=== PATIENT | female | born 1960 | race Hispanic/Latino ===

== ENCOUNTER 2020-08-04 08:35 | Observation (INO) | payer MEDICAID ==
[2020-07-30 11:00] LABS: BASOPHILS % (AUTO) 0.8 % (0.0-5.0); EOSINOPHILS % (AUTO) 1.4 % (0.0-8.0); HEMATOCRIT 40.8 % (36-48); LYMPHOCYTES % (AUTO) 20.7 % (21.0-51.0); MEAN CORPUSCULAR HEMOGLOBIN 29.3 pg (27.0-33.0); MEAN CORPUSCULAR HGB CONC 33.1 g/dL (32.0-36.0); MEAN CORPUSCULAR VOLUME 88.7 fL (79-99); NEUTROPHILS % (AUTO) 68.6 % (40.0-77.0); PLATELET COUNT (AUTO) 275 K/uL (130-400); RED CELL DISTRIBUTION WIDTH 13.5 % (11.0-15.5); WHITE BLOOD COUNT (AUTO) 6.3 K/uL (4.8-10.8)
[2020-07-30 11:15] LABS: ALBUMIN 4.2 g/dL (3.5-5.0); BILIRUBIN,TOTAL 0.5 mg/dL (0.2-1.0); CREATININE 0.5 mg/dL (0.5-1.5); POTASSIUM 3.6 mmol/L (3.5-5.1); TOTAL PROTEIN, SERUM 7.8 g/dL (6.0-8.3)
[2020-07-30 11:31] LABS: INR 0.95 (0.85-1.15); PARTIAL THROMBOPLASTIN TIME 25.2 SEC (26.3-35.5); PROTHROMBIN TIME 10.3 SEC (9.6-11.6)
[2020-08-03 10:53] VITALS: BP 146/56
--- NOTE | 2020-08-03 15:25 | NUR ---
NM INJECTION PROCEDURE PERFORMED BY DR. BECERRIL. PUNCTURE SITE LEFT 4 QUADRANTS OF BREAST AND PATIENT TOLERATED PROCEDURE WELL. END OF PROCEDURE AT 1530. AWAITING NM INJECTION FOR THE RIGHT BREAST. PATIENT RESTING IN BED, STABLE, NO C/O PAIN.
--- NOTE | 2020-08-03 17:11 | NUR ---
NM INJECTION PROCEDURE PERFORMED BY DR. BECERRIL. SECOND PUNCTURE SITE RIGHT 4 QUADRANTS OF BREAST AND PATIENT TOLERATED PROCEDURE WELL. END OF PROCEDURE AT 1655. AWAITING NM IMAGING. PATIENT RESTING IN BED, STABLE, NO C/O PAIN.
[2020-08-04] VITALS (33 sets, daily range): BP systolic 121–162; BP diastolic 69–93
[~2020-08-04] VITALS: Ht 152.4 cm; Wt 58.1 kg
[~2020-08-04 08:35] MED LIST: ATOR40TA71 PO; LIDOCAINE 1%-EPI 1:100,000 20 ML VIAL IJ ONE; LIDOCAINE HCL 1% 20 ML VIAL ONE; SODIUM BICARB 50MEQ 50ML VIAL 50 ML ONE
--- NOTE | 2020-08-04 09:10 | NUR ---
preop pt laying on stretcher in no distress. pt has rt upper chest wall portacath. pt oriented to room and call light. will continue to monitor pt.
[2020-08-04] MEDS ORDERED: CEFAZOLIN SODIUM 1 GM VIAL ONE (09:19)
[2020-08-04] MEDS ORDERED: LACTATED RINGERS 1000ML 1,000 ML IV ONE (09:19)
--- NOTE | 2020-08-04 10:00 | NUR ---
radiology pt taken to radiology via stretcher in no distress.
[2020-08-04] MEDS ORDERED: LIDOCAINE PF 2% 5ML ABBOJECT ONE ×2 (10:16→12:50)
[2020-08-04] MEDS ORDERED: ONDANSETRON HCL 4 MG/2 ML VIAL ONE (10:16)
[2020-08-04] MEDS ORDERED: PROPOFOL 10 MG/ML 20ML VIAL IV ONE (10:16)
[2020-08-04] MEDS ORDERED: SUCCINYLCHOLINE 200MG/10ML SYR ONE ×4 (10:16→15:09)
[2020-08-04] MEDS ORDERED: DEXAMETHASONE SOD PHOSPHATE 10MG/ML 1ML VIAL ONE ×2 (10:16→12:50)
[2020-08-04] MEDS ORDERED: MIDAZOLAM HCL 1 MG/ML 2ML VIAL ONE (10:16)
[2020-08-04] MEDS ORDERED: FENTANYL CITRATE PF 50 MCG/1 ML 2ML VIAL ONE ×2 (10:17→14:36)
[2020-08-04] MEDS ORDERED: LIDOCAINE HCL 1% 20 ML VIAL ONE (10:45)
[2020-08-04] MEDS ORDERED: BUPIVACAINE/PF 0.25% 30ML VIAL IJ ONE (10:45)
--- NOTE | 2020-08-04 11:15 | NUR ---
MAMMOGRAPHY GUIDED RIGHT AND LEFT BREAST NEEDLE LOCALIZATION PROCEDURE PERFORMED BY DR. ZIMMER. NEEDLE LOCALIZATION PUNCTURE SITE LATERAL RIGHT BREAST AND MEDIAL LEFT BREAST AND PATIENT TOLERATED PROCEDURE WELL. WIRE IN PLACE TO THE RIGHT LATERAL BREAST AND LEFT MEDIAL BREAST AND CONFIRMED WITH MAMMOGRAPHY PERFORMED BY [employer]. END OF PROCEDURE AT 1215. PT TOLERATED WELL. PATIENT TRANSPORTED TO DAY PATIENT VIA STRETCHER. REPORT GIVEN TO SERGIO LLANES. PT STABLE, AAO X 3 WITH NO C/O PAIN.
--- NOTE | 2020-08-04 12:45 | NUR ---
portcath portacath access with 22gauge 1 inch to right upper chest. pt tolerated well. sterile dressing applied
[2020-08-04] MEDS ORDERED: MEPERIDINE-PF 25 MG/ML SYG ONE ×3 (14:14→17:36)
[2020-08-04] MEDS ORDERED: OCTYL 2-CYANOACRYLATE 1 EACH TP ONE (14:58)
[2020-08-04] MEDS ORDERED: NEOSTIGMINE 5MG/5ML SYR IV ONE (16:39)
[2020-08-04] MEDS ORDERED: GLYCOPYRROLATE 1 MG/5 ML SYRINGE ONE (16:39)
--- NOTE | 2020-08-04 18:30 | NUR ---
MS RECEIVED BY PACU IN BED IN STABLE CONDITION. PORT A CATH TO RIGHT CHEST ACCESSED WITH NS RUNNING AT KVO. PT ORIENTED TO ROOM AND CALL LIGHT. WILL MONITOR FOR REMAINDER OF SHIFT.
[2020-08-04] MEDS ORDERED: MORPHINE SULFATE 4 MG/1ML SYG IV PRN (18:45)
[2020-08-04] MEDS ORDERED: ONDANSETRON HCL 4 MG/2 ML VIAL IVP PRN (18:45)
--- NOTE | 2020-08-05 03:00 | NUR ---
PT. AMBULATED TO BR WITH ASSIST, WELL TOLERATED. SAT UP IN CHAIR AFTERWARDS FOR 20 MINS AND THEN ASSISTED BACK TO BED BY JOANNA. DENIED PAIN AND DISCOMFORT.
[2020-08-05 03:31] VITALS: BP 154/70
[2020-08-05] MEDS: ACETAMINOPHEN-CODEINE 300/30MG TAB PO PRN ×3 (04:01→14:57)
[2020-08-05 07:26] VITALS: BP 144/70
[2020-08-05] MEDS ORDERED: ATORVASTATIN CALCIUM 40 MG TABLET PO SCH (09:00)
--- NOTE | 2020-08-05 09:25 | NUR ---
ambulating in the hallway in steady gait Addendum: 08/05/20 at 0938 by LARRY NOLAND RN Amended: Links added.
--- NOTE | 2020-08-05 10:30 | NUR ---
emphasized the importance of ambulation, but pt refused to ambulate in the hallway Addendum: 08/05/20 at 1842 by LARRY NOLAND RN ERROR : WRONG PT
[2020-08-05 11:09] VITALS: BP 127/69
--- NOTE | 2020-08-05 14:55 | NUR ---
physician daria - Ilia CHAVARRIA at bedside, informed pt that she will be discharged today. Addendum: 08/05/20 at 1512 by LARRY NOLAND RN Amended: Links added.
[2020-08-05 15:25] VITALS: BP 136/75
[2020-08-05] MEDS ORDERED: HEPARIN SODIUM/PF 100UNIT/ML 5ML SYRINGE IV SCH (16:00)
--- NOTE | 2020-08-05 16:15 | NUR ---
pt is discharged, verbal and written discharge instructions given, informed of the follow up appointment, prescription given. informed to call the doctor for further concerns. pt voiced understanding to all things discussed. (daughter at bedside, speaks israeli) Addendum: 08/05/20 at 1655 by LARRY NOLAND RN Amended: Links added.
--- NOTE | 2020-08-05 16:30 | NUR ---
pt is dismissed in stable condition, brought to private car via wheelchair by Sasha Akers pcp Addendum: 08/05/20 at 1656 by LARRY NOLAND RN Amended: Links added.
== END 2020-08-05 16:30 | disposition home or self-care (01) ==
LOC: DAH 08:35 → WSH 08:36 → DAH 08:36
PROVIDERS: ADMIT Student in an Organized Health Care Education/Training Program; ATTEND Student in an Organized Health Care Education/Training Program
DX: C50.912 Malignant neoplasm of unspecified site of left female breast (principal); Z20.828 Contact with and (suspected) exposure to other viral communicable diseases; C50.911 Malignant neoplasm of unspecified site of right female breast; Z92.21 Personal history of antineoplastic chemotherapy
CPT/HCPCS: 19281; 19282; 19301; 36415; 38525; 71045; 76098 ×2; 76642 ×2; 77066; 78195; 80053; 82948 ×2; 85025; 85610; 85730; 93005; 96360; 96361; A4215; A4649 ×2; A4930; A6219; A9541; C9803; G0168; G0378 ×17; J0330 ×4; J0690; J1100 ×2; J1642; J2001 ×2; J2175 ×3; J2250; J2405; J2704; J2710; J3010 ×2; J3490 ×4; J7030; J7120; U0003; 96374

== ENCOUNTER → 2021-03-04 | Outpatient (CLI) | payer MEDICAID ==
[~2021-03-04] MED LIST changes: -LIDOCAINE 1%-EPI 1:100,000 20 ML VIAL IJ ONE; -LIDOCAINE HCL 1% 20 ML VIAL ONE; -SODIUM BICARB 50MEQ 50ML VIAL 50 ML ONE
== END | disposition home or self-care (01) ==
LOC: RAH 11:04
PROVIDERS: ATTEND Student in an Organized Health Care Education/Training Program
DX: C50.911 Malignant neoplasm of unspecified site of right female breast (principal)
CPT/HCPCS: 76641

== ENCOUNTER → 2021-12-15 | Outpatient (CLI) | payer MEDICAID | END | disposition home or self-care (01) | LOC: RAH 12-07 13:30 | PROVIDERS: ATTEND Student in an Organized Health Care Education/Training Program | DX: R92.1 Mammographic calcification found on diagnostic imaging of breast (principal); R92.2 Inconclusive mammogram; Z85.3 Personal history of malignant neoplasm of breast; Z98.890 Other specified postprocedural states | CPT/HCPCS: 77066 ==

== ENCOUNTER 2024-06-30 01:58 | Emergency (ER) | payer BC, MEDICAID ==
[~2024-06-30] VITALS: Ht 154.9 cm; Wt 59.9 kg
[2024-06-30 02:10] VITALS: BP 155/73; PULSE 76; RESP 18; TEMP 97.7; O2SAT 96
[2024-06-30] MEDS ORDERED: CIPR7.5D7 AS (02:15)
[2024-06-30] MEDS: CIPROFLOXACIN HCL 0.2%/HYDROCORT 1% 10 ML OTIC SUSP OTIC ONE (02:27)
== END 2024-06-30 02:36 | disposition home or self-care (01) ==
LOC: EDH 01:58
DX: T16.2XXA Foreign body in left ear, initial encounter (principal); E11.9 Type 2 diabetes mellitus without complications; I10 Essential (primary) hypertension; Z79.899 Other long term (current) drug therapy; W44.F4XA Insect entering into or through a natural orifice, initial encounter; Y93.89 Activity, other specified; Y92.89 Other specified places as the place of occurrence of the external cause; Y99.8 Other external cause status